=== PATIENT | male | born 1995 | race Two or more races ===

== ENCOUNTER 2024-08-31 09:41 | Emergency (ER) | payer MEDICAID, SELFPAY ==
--- NOTE | 2024-08-31 09:44 | EKG_ITS ---
[facility] Test Date: 2024-08-31 Pat Name: MADISON GREENFIELD Department: Room: - Gender: Male [employer]: : 1995 Requested By: ED Temporary Provider Order Number: [id number] Reading MD: ED Temporary Provider Measurements Intervals [place] Rate: 86 P: 11 NV: 133 QRS: -10 QRSD: 75 T: 22 QT: 331 QTc: 398 Interpretive Statements SINUS RHYTHM No previous ECG available for comparison /store/S0/[id number]
[2024-08-31 10:21] VITALS: BP 153/94; PULSE 85; RESP 19; TEMP 36.4; O2SAT 98; BMI 51.9
--- NOTE | 2024-08-31 10:51 | EDNOTE_ITS ---
<Statement entered by Zofia Miranda MD - 08/31/24 17:34> As co-signing physician, I was present and available for consult prn. I concur with the plan and care as documented by the midlevel provider. ED General RME/HPI General Chief complaint: Chest Pain Stated complaint: CHEST PAIN Time Seen by Provider: 08/31/24 10:44 Arrival date/time: 08/31/24 09:41 CC: Chest pain HPI intermittent for the past 2 months each time he gets a shot for his weight loss once a week he has chest pain lasting approximately 15 seconds in the left anterior chest no prior history of similar events denies fever chills shortness of breath currently the chest pain is absent. Related Data Allergies Allergy/AdvReac Type Severity Reaction Status Date / Time No Known Allergies Allergy Verified 03/25/19 22:34 Review of Systems Review of Systems Narrative Review of Systems: GEN: No fever, no chills, no weight loss EYES: No discharge, no visual changes, no pain HEENT: No ear pain, no congestion, no sore throat PULM: No shortness of breath, no cough, no congestion CV: No chest pain, no dyspnea on exertion, no palpitations GI: No nausea, no vomiting, no diarrhea, no pain, no constipation : No frequency, no urgency, no dysuria MUSC/SKEL: No joint pain, no back pain SKIN: No rash PSYCH: No hallucinations, no depression HEME/LYMPH: No easy bleeding or bruising tendencies NEURO: No weakness, no headache Past Medical History Social History SMOKING STATUS: Never smoker ED Exam Narrative Physical exam: [General: Morbidly obese not in cot no acute distress Head normocephalic HEENT: Within acceptable limits Neck is supple nontender Chest equal chest rise nontender to palpation Respiratory: Clear to auscultation no wheezes crackles or rubs CV: Rate rhythm is regular no murmurs rubs or clicks Abdomen is distended secondary to body habitus soft nontender no masses positive bowel sounds all 4 quadrants Back: No CVA tenderness no spinous process tenderness from cervical spine thoracic and lumbar spine Skin: Intact no petechiae rash induration ulceration or crepitus Extremities: Moving all extremity against resistance cap refill less than 2 seconds neurosensory intact Neuro: Awake alert oriented x3 Glascow coma 15 no focal deficits] Course Quality Measures none Orders Category Date Time Status EKG (ED ONLY) *Do not use* NOW Care 08/31/24 09:44 Completed EKG (ED Only) Stat Exams 08/31/24 09:44 Draft Vital Signs Vital signs: Vital Signs Temperature 97.6 F 08/31/24 10:21 Pulse Rate 85 08/31/24 10:21 Respiratory Rate 19 08/31/24 10:21 Blood Pressure 153/94 H 08/31/24 10:21 Pulse Oximetry (%) 98 08/31/24 10:21 Oxygen Delivery Method Room Air 08/31/24 10:21 [facility] Patient data External records reviewed:: [facility] previous records Clinical information provided by:: patient Social determinants that could affect healthcare access:: none Patient has the following chronic illnesses:: Morbid obesity How is presenting disease/condition affected by chronic disease/condition?: uneffected by Evaluation data The following diagnostics were reviewed and interpreted by me:: EKG tracing(s) Lab and/or radiology exams considered but not ordered:: EKG performed at 1024 shows normal sinus rhythm ventricle rate at 86 DE interval 133 QRS of 75 QTc of 375 is normal sinus rhythm. Interpretation Summary: Normal sinus rhythm Medications Medications considered but not ordered:: None Medication administrations:: None Consultations Consultation(s) initiated? (list below): No Diagnosis Differential Diagnosis ED Complaint MDM: ACS VT pneumonia Most likely diagnosis given after review of the tests above:: Chest pain noncardiac Admission Indicated Admission indicated?: not indicated Explain why admission is indicated or not indicated:: Stable for discharge Admission Request Was there a request for admission?: No Disposition Plan Disposition Plan: Discharge Discharge Attestation Discharge Attestation: The patient and all family members were given an opportunity to ask questions and understood the discharge instructions. Discharge instructions specifically effects, indications for sooner follow up or return to the emergency department, and the expected course of current diagnosis. Patient condition: Stable Medical Decision Making Differential Diagnosis Differential Diagnosis: ACS VT pneumonia Discharge Plan Plan Patient Disposition: HOME (Self Care) Patient condition on transfer: Stable Problem List Clinical Impression: Chest pain Patient/Caregiver Discharge Instructions Education Materials: ED Chest Pain, Noncardiac Additional Instructions: Continue with your injections, if there is a worsening of the symptoms return the emergency room for reevaluation. Print Language: Welsh Stand Alone Forms: Vanesa Award Info., Work/School Release, Patient Portal Info Letter PA/CUT OUT PRESS OPERATOR Supervising Physician PA/CUT OUT PRESS OPERATOR Supervising Physician: Jody Elam ENP
== END 2024-08-31 11:03 | disposition home or self-care (01) ==
PROVIDERS: Emergency Provider Emergency Medicine; PCP Physician Assistant Medical
DX: R07.9 Chest pain, unspecified (principal)
CPT/HCPCS: 93005; 99283